=== PATIENT | female | born 1955 | race Caucasian/White ===

== ENCOUNTER → 2024-01-12 13:14 | Outpatient (REF) | payer MEDICARE, OTHER, SELFPAY | LOC: WDC 13:14 | PROVIDERS: ATTENDING PHYSICIAN Nurse Practitioner Women's Health; FAMILY PHYSICIAN Internal Medicine | DX: Z12.31 Encounter for screening mammogram for malignant neoplasm of breast (principal) | CPT/HCPCS: 77063; 77067 ==

== ENCOUNTER → 2024-02-01 09:24 | Outpatient (REF) | payer MEDICARE, OTHER, SELFPAY ==
[2024-02-01 13:10] LABS: ALT (SGPT) 23 U/L (0-35); AST (SGOT) 36 U/L (14-36); Albumin 4.2 g/dl (3.5-5.0); Alkaline Phosphatase 67 U/L (38-126); Blood Urea Nitrogen 15 mg/dl (7-17); Calcium 9.5 mg/dl (8.4-10.2); Carbon Dioxide 29 mmol/L (22-30); Chloride 104 mmol/L (98-107); Glucose 94 mg/dl (70-99); Potassium 4.4 mmol/L (3.5-5.1); Sodium 136 mmol/L (135-145); Total Bilirubin 0.8 mg/dl (0.2-1.3); Total Protein 6.8 g/dl (6.3-8.2); eGFR > 60.00
== END ==
LOC: HWLAB 09:24
PROVIDERS: ATTENDING PHYSICIAN Internal Medicine Endocrinology, Diabetes & Metabolism; FAMILY PHYSICIAN Internal Medicine
DX: M81.0 Age-related osteoporosis without current pathological fracture (principal)
CPT/HCPCS: 36415; 80053

== ENCOUNTER → 2024-02-04 11:10 | Outpatient (REF) | payer MEDICARE, OTHER, SELFPAY | LOC: RAD 11:10 | PROVIDERS: ATTENDING PHYSICIAN Internal Medicine Endocrinology, Diabetes & Metabolism; FAMILY PHYSICIAN Internal Medicine | DX: M81.0 Age-related osteoporosis without current pathological fracture (principal) | CPT/HCPCS: 77080 ==

== ENCOUNTER → 2024-04-19 09:33 | Outpatient (REF) | payer MEDICARE, OTHER, SELFPAY ==
[2024-04-19 12:14] LABS: % Basophils 0.8 % (0-2); % Immature Granulocytes 0.2 % (0-0.5); % Lymphocytes 29.4 % (20.5-51.1); % Monocytes 7.6 % (1.7-9.3); Absolute Basophils 0.1 10^3/uL (0-0.2); Absolute Eosinophils 0.1 10^3/uL (0-0.7); Absolute Lymphocytes 1.8 10^3/uL (1.2-3.4); Absolute Monocytes 0.5 10^3/uL (0.1-0.6); Absolute Neutrophils 3.6 10^3/uL (1.4-6.5); Hematocrit 43.2 % (37.0-47.0); Hemoglobin 14.5 g/dL (12.0-16.0); Mean Corp Hgb Conc. 33.6 g/dL (33.0-37.0); Mean Corpuscular Hgb 30.3 pg (27.0-31.0); Mean Corpuscular Volume 90.2 fL (81.0-99.0); Mean Platelet Volume 9.8 fL (7.4-10.4); Nucleated Red Blood Cells % 0 %; Platelet Count 246 10^3/uL (130-400); Red Blood Cell Count 4.79 10^6/uL (4.20-5.40); Red Cell Dist. Width 12.5 % (11.5-14.5); White Blood Cell Count 6.1 10^3/uL (4.8-10.8)
[2024-04-19 12:29] LABS: ALT (SGPT) 21 U/L (0-35); AST (SGOT) 37 U/L (14-36); Albumin 4.4 g/dl (3.5-5.0); Alkaline Phosphatase 66 U/L (38-126); Blood Urea Nitrogen 16 mg/dl (7-17); Calcium 9.7 mg/dl (8.4-10.2); Carbon Dioxide 31 mmol/L (22-30); Chloride 103 mmol/L (98-107); Glucose 95 mg/dl (70-99); Potassium 4.6 mmol/L (3.5-5.1); Sodium 138 mmol/L (135-145); Total Bilirubin 0.7 mg/dl (0.2-1.3); Total Protein 7.1 g/dl (6.3-8.2); eGFR > 60.00
[2024-04-19 12:56] LABS: TSH Reflex To Free T4 0.69 uIU/ml (0.47-4.68)
[2024-04-19 13:32] LABS: Folate > 20.0 ng/ml (2.76-20); Vitamin B12 622 pg/ml (239-931)
[2024-04-19 16:09] LABS: tTG IgA Antibody 5.4 EU/ml (0-19); tTG IgG Antibody 11.8 EU/ml (0-19)
[2024-04-20 00:21] LABS: IgA 197 mg/dl (70-400)
[2024-04-21 05:20] LABS: Vitamin D 1,25 Dihydroxy 69.1 pg/mL (19.9-79.3)
[2024-04-21 21:47] LABS: Endomysial IgA Antibody Titer <1:10 (<1:10)
== END ==
LOC: HWLAB 09:33
PROVIDERS: ATTENDING PHYSICIAN Internal Medicine Gastroenterology; FAMILY PHYSICIAN Internal Medicine
DX: K90.0 Celiac disease (principal); R19.7 Diarrhea, unspecified
CPT/HCPCS: 36415; 80053; 82607; 82652; 82746; 82784; 83516; 84443; 84446; 84590; 85025; 86231

== ENCOUNTER → 2024-06-06 07:36 | Outpatient (REF) | payer MEDICARE, OTHER, SELFPAY ==
[2024-06-06 10:08] LABS: Total Cholesterol 227 mg/dl (50-199); Triglyceride 55 mg/dl (10-149); Very Low Density Lipoprotein 11 mg/dl (0-30)
[2024-06-06 10:19] LABS: HDL Cholesterol 121 mg/dl; LDL Cholesterol, Calculated 95 mg/dl
== END ==
LOC: HWRAD 07:36
PROVIDERS: ATTENDING PHYSICIAN Internal Medicine Gastroenterology; FAMILY PHYSICIAN Internal Medicine; REFERRING PHYSICIAN Internal Medicine Cardiovascular Disease
DX: R74.01 Elevation of levels of liver transaminase levels (principal); Z82.49 Family history of ischemic heart disease and other diseases of the circulatory system; Z01.89 Encounter for other specified special examinations
CPT/HCPCS: 36415; 76700; 80061

== ENCOUNTER → 2024-09-26 13:04 | Outpatient (REF) | payer MEDICARE, OTHER, SELFPAY | LOC: RSP 13:04 | PROVIDERS: ATTENDING PHYSICIAN Internal Medicine Critical Care Medicine; FAMILY PHYSICIAN Internal Medicine | DX: D86.9 Sarcoidosis, unspecified (principal) | CPT/HCPCS: 94727; 94729; 71046; 88738; 94010 ==

== ENCOUNTER → 2024-09-28 08:41 | Outpatient (REF) | payer MEDICARE, OTHER, SELFPAY ==
[2024-09-28 12:38] LABS: % Basophils 0.8 % (0-2); % Eosinophils 2.4 % (0-6); % Immature Granulocytes 0.2 % (0-0.5); % Lymphocytes 28.7 % (20.5-51.1); % Monocytes 8.4 % (1.7-9.3); % Neutrophils 59.5 % (42.2-75.2); Absolute Eosinophils 0.1 10^3/uL (0-0.7); Absolute Lymphocytes 1.4 10^3/uL (1.2-3.4); Absolute Monocytes 0.4 10^3/uL (0.1-0.6); Hematocrit 42.4 % (37.0-47.0); Hemoglobin 13.6 g/dL (12.0-16.0); Mean Corp Hgb Conc. 32.1 g/dL (33.0-37.0); Mean Corpuscular Hgb 30.1 pg (27.0-31.0); Mean Corpuscular Volume 93.8 fL (81.0-99.0); Mean Platelet Volume 10.2 fL (7.4-10.4); Nucleated Red Blood Cells % 0 %; Platelet Count 220 10^3/uL (130-400); Red Blood Cell Count 4.52 10^6/uL (4.20-5.40)
[2024-09-28 12:43] LABS: ALT (SGPT) 27 U/L (0-35); AST (SGOT) 38 U/L (14-36); Albumin 4.3 g/dl (3.5-5.0); Alkaline Phosphatase 61 U/L (38-126); Blood Urea Nitrogen 18 mg/dl (7-17); Calcium 9.4 mg/dl (8.4-10.2); Carbon Dioxide 32 mmol/L (22-30); Chloride 101 mmol/L (98-107); Glucose 93 mg/dl (70-99); Potassium 4.6 mmol/L (3.5-5.1); Sodium 138 mmol/L (135-145); Total Bilirubin 0.6 mg/dl (0.2-1.3); Total Cholesterol 244 mg/dl (50-199); Triglyceride 45 mg/dl (10-149); Very Low Density Lipoprotein 9 mg/dl (0-30); eGFR > 60.00
[2024-09-28 12:53] LABS: IgA 195 mg/dl (70-400)
[2024-09-28 12:57] LABS: HDL Cholesterol 140 mg/dl; LDL Cholesterol, Calculated 95 mg/dl
[2024-09-28 13:00] LABS: Vitamin D, 25-OH*** 57.8 ng/mL (30-80)
[2024-09-29 23:28] LABS: Angiotensin-1-converting Enzym 80 U/L (16-85)
[2024-09-30 06:33] LABS: Endomysial IgA Antibody Titer <1:10 (<1:10)
== END ==
LOC: HWLAB 08:41
PROVIDERS: ATTENDING PHYSICIAN Internal Medicine
DX: D86.9 Sarcoidosis, unspecified (principal); K90.0 Celiac disease; E78.01 Familial hypercholesterolemia; E55.9 Vitamin D deficiency, unspecified
CPT/HCPCS: 36415; 80053; 80061; 82164; 82306; 82784; 83516; 85025; 86231

== ENCOUNTER 2024-09-29 15:46 | Emergency (ER) | payer MEDICARE, OTHER, SELFPAY ==
[2024-09-29 15:52] VITALS: BP 175/73
[2024-09-29 16:06] LABS: % Basophils 0.5 % (0-2); % Eosinophils 0.9 % (0-6); % Immature Granulocytes 0.2 % (0-0.5); % Lymphocytes 29.7 % (20.5-51.1); % Neutrophils 59.7 % (42.2-75.2); Absolute Eosinophils 0.1 10^3/uL (0-0.7); Absolute Lymphocytes 2.4 10^3/uL (1.2-3.4); Absolute Monocytes 0.7 10^3/uL (0.1-0.6); Absolute Neutrophils 4.9 10^3/uL (1.4-6.5); Hematocrit 40.4 % (37.0-47.0); Hemoglobin 13.6 g/dL (12.0-16.0); Mean Corp Hgb Conc. 33.7 g/dL (33.0-37.0); Mean Corpuscular Hgb 30.7 pg (27.0-31.0); Mean Corpuscular Volume 91.2 fL (81.0-99.0); Mean Platelet Volume 9.5 fL (7.4-10.4); Nucleated Red Blood Cells % 0 %; Platelet Count 212 10^3/uL (130-400); Red Blood Cell Count 4.43 10^6/uL (4.20-5.40); Red Cell Dist. Width 11.9 % (11.5-14.5); White Blood Cell Count 8.1 10^3/uL (4.8-10.8)
[2024-09-29 16:24] LABS: ALT (SGPT) 27 U/L (0-35); AST (SGOT) 40 U/L (14-36); Albumin 4.7 g/dl (3.5-5.0); Alkaline Phosphatase 68 U/L (38-126); Blood Urea Nitrogen 19 mg/dl (7-17); Calcium 9.6 mg/dl (8.4-10.2); Carbon Dioxide 31 mmol/L (22-30); Chloride 98 mmol/L (98-107); Glucose 103 mg/dl (70-99); Potassium 4.3 mmol/L (3.5-5.1); Sodium 134 mmol/L (135-145); Total Bilirubin 0.6 mg/dl (0.2-1.3); Total Protein 7.4 g/dl (6.3-8.2); eGFR > 60.00
[2024-09-29 16:35] LABS: Troponin I < 0.012 ng/ml
--- NOTE | 2024-09-29 18:09 | ED.GENMED ---
History of Present Illness
General
Chief Complaint: Chest Problem
Source: patient
Exam Limitations: none
Time Seen by Provider: 09/29/24 17:37
History of Present Illness
History of Present Illness:
69-year-old female with history of GERD and on citalopram presents with intermittent palpitations over the last several weeks and the onset of a chest pressure today. She also notes headache and lightheadedness. She states her blood pressure has
been elevated today. She denies any unilateral numbness or weakness. She denies any vision change. She does note 2 weeks ago she had a 3-hour one-way drive to [facility] and back. No leg swelling or calf pain.
Past History
Past History
ED Past Medical History: Other (celiac ds, sarcoidosis) and Other (Migraine headaches)
Social History
Tobacco: Non-smoker
Alcohol: None
Drug: None
Personal:
Living: with family
Employment: Employed
Phy Exam
Physical Exam
Physical Exam:
General: Well-appearing female no acute respiratory distress
HEENT: Normocephalic atraumatic pupils equal round reactive to light
Heart: Regular rate and rhythm
Lungs: Clear no wheeze
Abdomen soft nontender nondistended no guarding rebound
Extremities: No cyanosis or edema
Neurologic alert and oriented no facial asymmetry or slurred speech
Course
Orders/Labs/Results
Orders:
Orders
09/29/24 15:47
ECG [Electrocardiogram (*1)] Urgent
Reason for Study: Chest Pain
EKG- Treatment ONCE
09/29/24 15:58
Complete Blood Count/With Diff Urgent
Comprehensive Metabolic Panel Urgent
Troponin I Urgent
09/29/24 18:03
CT Head W/o Iv Contrast Urgent
Comment:
Reason For Exam: headache, dizzy
09/29/24 18:34
D-Dimer Urgent
TSH Reflex To Free T4 Urgent
Troponin I Urgent
09/29/24 20:05
COVID-19 Antigen Urgent
Source: Nasal Swab
Influenza A+B Rapid Molecular Urgent
GEORGE Source: Nasal Swab
Specimen Description:
Abnormal Lab Results
09/29/24
15:58
Absolute Monos (auto) 0.7 H 10^3/uL
(0.1-0.6)
Sodium 134 L mmol/L
(135-145)
Carbon Dioxide 31 H mmol/L
(22-30)
BUN 19 H mg/dl
(7-17)
Glucose 103 H mg/dl
(70-99)
AST 40 H U/L
(14-36)
09/29/24 15:58
09/29/24 15:58
Vital Signs
Initial and Last Documented VS:
Initial Vital Signs
Temp Pulse Resp BP Pulse Ox
97.5 F 58 16 175/73 98
09/29/24 15:52 09/29/24 15:52 09/29/24 15:52 09/29/24 15:52 09/29/24 15:52
Last Documented Vital Signs
Temp Pulse Resp BP Pulse Ox
97.5 F 58 12 163/78 100
09/29/24 15:52 09/29/24 18:39 09/29/24 18:39 09/29/24 18:39 09/29/24 18:39
MDM/Problems Addressed
Differential Diagnosis Includes:
Patient with chest pressure headache lightheadedness elevated blood pressure readings and fatigue. Consider palpitations versus PVC versus electrolyte abnormality will check for signs of ACS with troponin. She did have an x-ray of her chest
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 Given the recent travel will check D-dimer.
*Critical Care Note
Total Time (30-74mins, 75-104mins- exclusive of procedures): Not Applicable
Update Note
Update Note:
Reviewed labs. Reevaluated patient multiple times. Initial and repeat troponin both undetectable. D-dimer negative chest x-ray clear COVID and flu test were added which were negative. Patient has remained stable. Blood pressure improved. No
sign of ACS currently but will discharge with chest pain follow up. Return precautions given.
ED Attending Note
-
Portions of this chart may have been created with voice recognition software.� Occasional wrong word or��sound alike� substitutions may have occurred due to the inherent limitations of voice recognition software.
Discharge Plan
Departure
Patient Disposition: Home (Routine Discharge)
Date of Disposition: 09/29/24
Time of Disposition: 20:43
Patient with high blood pressure during this ER visit?: No
Discharge Problem:
Chest pain
Instructions: Chest Pain CBC Follow Up
Prescriptions:
No Action
citalopram 20 MG tablet
20 mg DAILY
protriptyline [Vivactil] 5 MG tablet
5 mg TID
cholecalciferol (vitamin D3) 1,000 UNIT capsule
1,000 unit PO DAILY
docosahexaenoic acid-epa 1 CAP capsule
1 cap BID
magnesium oxide 400 MG capsule
400 mg PO DAILY
Citracal+Vitamin D
630 mg BID
meclizine 25 MG tablet
25 mg PO [id number] PRN (Reason: nausea or vertigo) Qty: 11 0RF
Referrals:
Jp Ram MD [Family Provider] -
Activity Restrictions/Additional Instructions:
Please return here for worsening symptoms otherwise follow-up with your cardiology team
Interventions
Interventions:
*Risk Screen - Suicide Last Done: 09/29/24 15:54
*General Assessment Last Done: 09/29/24 18:39
*Neglect/Abuse Screening Last Done: 09/29/24 15:54
ED- Fall Risk Assessment Last Done: 09/29/24 18:39
*ED COVID-19 Vaccine History Last Done: 09/29/24 18:39
ED- Cardiac Assessment Last Done: 09/29/24 18:39
ED- Pulmonary Assessment Last Done: 09/29/24 18:39
Discharge Date and Time
Print Language: UKRAINIAN
[2024-09-29 18:39] VITALS: BP 163/78
--- NOTE | 2024-09-29 18:43 | EDRN ---
Pt states she has lightheadedness, a headache, heavyness in substernal area of chest and HTN.
[2024-09-29 19:02] LABS: D-Dimer 0.28 ug/mlFEU (0.00-0.50)
[2024-09-29 19:06] LABS: Troponin I < 0.012 ng/ml
[2024-09-29 19:37] LABS: TSH Reflex To Free T4 1.01 uIU/ml (0.47-4.68)
[2024-09-29 20:25] LABS: COVID-19 Antigen Negative (Negative)
== END 2024-09-29 20:59 | disposition home or self-care (01) ==
LOC: EMR 15:46
PROVIDERS: Emergency Medicine; Physician Assistant; EMERGENCY PHYSICIAN Emergency Medicine; FAMILY PHYSICIAN Internal Medicine
DX: R07.89 Other chest pain (principal); K21.9 Gastro-esophageal reflux disease without esophagitis; Z11.52 Encounter for screening for COVID-19
CPT/HCPCS: 99285; 70450; 80053; 84443; 84484; 85025; 85379; 87502; 87811; 93005

== ENCOUNTER → 2024-10-23 10:19 | Outpatient (REF) | payer MEDICARE, OTHER, SELFPAY | LOC: RCS 10:19 | PROVIDERS: ATTENDING PHYSICIAN Internal Medicine Cardiovascular Disease; FAMILY PHYSICIAN Internal Medicine | DX: R00.2 Palpitations (principal) | CPT/HCPCS: 93225; 93226 ==

== ENCOUNTER → 2024-11-01 12:52 | Outpatient (REF) | payer MEDICARE, OTHER, SELFPAY | LOC: HWRCS 12:52 | PROVIDERS: ATTENDING PHYSICIAN Internal Medicine Cardiovascular Disease; FAMILY PHYSICIAN Internal Medicine | DX: R00.2 Palpitations (principal) | CPT/HCPCS: 93306 ==

== ENCOUNTER → 2025-01-12 13:00 | Outpatient (REF) | payer MEDICARE, OTHER, SELFPAY | LOC: WDC 13:00 | PROVIDERS: FAMILY PHYSICIAN Internal Medicine | DX: Z12.31 Encounter for screening mammogram for malignant neoplasm of breast (principal) | CPT/HCPCS: 77063; 77067 ==

== ENCOUNTER → 2025-01-15 09:41 | Outpatient (REF) | payer MEDICARE, OTHER, SELFPAY ==
[2025-01-15 12:24] LABS: ALT (SGPT) 25 U/L (0-35); AST (SGOT) 36 U/L (14-36); Albumin 4.3 g/dl (3.5-5.0); Alkaline Phosphatase 70 U/L (38-126); Blood Urea Nitrogen 22 mg/dl (7-17); Calcium 9.7 mg/dl (8.4-10.2); Carbon Dioxide 32 mmol/L (22-30); Chloride 104 mmol/L (98-107); Glucose 91 mg/dl (70-99); Potassium 4.6 mmol/L (3.5-5.1); Sodium 141 mmol/L (135-145); Total Bilirubin 0.9 mg/dl (0.2-1.3); Total Protein 6.9 g/dl (6.3-8.2); eGFR > 60.00
[2025-01-15 12:40] LABS: Vitamin D, 25-OH*** 91.8 ng/mL (30-80)
== END ==
LOC: HWLAB 09:41
PROVIDERS: ATTENDING PHYSICIAN Internal Medicine Endocrinology, Diabetes & Metabolism; FAMILY PHYSICIAN Internal Medicine
DX: M81.0 Age-related osteoporosis without current pathological fracture (principal); E55.9 Vitamin D deficiency, unspecified
CPT/HCPCS: 36415; 80053; 82306

== ENCOUNTER → 2025-02-08 12:55 | Outpatient (REF) | payer MEDICARE, OTHER, SELFPAY | LOC: WDC 12:55 | PROVIDERS: FAMILY PHYSICIAN Internal Medicine | DX: R92.2 Inconclusive mammogram (principal); R92.30 Dense breasts, unspecified | CPT/HCPCS: 76641 ==

== ENCOUNTER → 2025-02-21 09:39 | Outpatient (REF) | payer MEDICARE, OTHER, SELFPAY ==
[2025-02-21 12:37] LABS: Iron 83 ug/dl (37-170)
[2025-02-21 12:46] LABS: Percent Saturation 30 % (20-50); Total Iron Binding Capacity 275 ug/dl (265-497)
[2025-02-21 12:59] LABS: TSH Reflex To Free T4 0.84 uIU/ml (0.47-4.68)
[2025-02-21 13:35] LABS: Folate > 20.0 ng/ml (2.76-20); Vitamin B12 602 pg/ml (239-931)
[2025-02-21 23:27] LABS: IgA 200 mg/dl (70-400)
[2025-02-22 21:22] LABS: Vitamin D 1,25 Dihydroxy 45.6 pg/mL (19.9-79.3)
[2025-02-22 23:07] LABS: Ceruloplasmin 28 mg/dL (16-45)
[2025-02-23 01:53] LABS: F-Actin Antibody IgG 15 Units (0-19); Mitochondrial M2 Ab, IgG 6.1 Units (0.0-24.9)
[2025-02-23 14:04] LABS: ANA, IgG Reflex to HEp-2 None Detected (None Detected)
[2025-02-23 14:05] LABS: tTG IgG Antibody 7.9 EU/ml (0-19)
== END ==
LOC: HWLAB 09:39
PROVIDERS: ATTENDING PHYSICIAN Internal Medicine Gastroenterology; FAMILY PHYSICIAN Internal Medicine
DX: R74.01 Elevation of levels of liver transaminase levels (principal); K90.0 Celiac disease; R19.7 Diarrhea, unspecified
CPT/HCPCS: 36415; 82103; 82104; 82390; 82607; 82652; 82728; 82746; 82784; 83516; 83540; 83550; 84443; 84446; 84590; 86015; 86038; 86231; 86381

== ENCOUNTER → 2025-05-16 08:54 | Outpatient (REF) | payer MEDICARE, OTHER, SELFPAY | LOC: HWRAD 08:54 | PROVIDERS: ATTENDING PHYSICIAN Internal Medicine Gastroenterology; FAMILY PHYSICIAN Internal Medicine | DX: K76.0 Fatty (change of) liver, not elsewhere classified (principal) | CPT/HCPCS: 76700 ==

== ENCOUNTER → 2025-08-15 08:50 | Outpatient (REF) | payer MEDICARE, OTHER, SELFPAY ==
[2025-08-15 15:28] LABS: Vitamin D, 25-OH*** 50.1 ng/mL (30-80)
[2025-08-15 16:32] LABS: ALT (SGPT) 23 U/L (0-35); AST (SGOT) 34 U/L (14-36); Albumin 4.2 g/dl (3.5-5.0); Alkaline Phosphatase 66 U/L (38-126); Blood Urea Nitrogen 15 mg/dl (7-17); Calcium 9.4 mg/dl (8.4-10.2); Carbon Dioxide 29 mmol/L (22-30); Chloride 104 mmol/L (98-107); Glucose 96 mg/dl (70-99); Potassium 4.7 mmol/L (3.5-5.1); Sodium 136 mmol/L (135-145); Total Protein 7.4 g/dl (6.3-8.2); eGFR > 60.00
== END ==
LOC: HWLAB 08:50
PROVIDERS: ATTENDING PHYSICIAN Internal Medicine Endocrinology, Diabetes & Metabolism; FAMILY PHYSICIAN Internal Medicine
DX: M81.0 Age-related osteoporosis without current pathological fracture (principal); E55.9 Vitamin D deficiency, unspecified
CPT/HCPCS: 36415; 80053; 82306

== ENCOUNTER → 2025-10-10 09:29 | Outpatient (REF) | payer MEDICARE, OTHER, SELFPAY ==
[2025-10-10 12:01] LABS: Hematocrit 41.3 % (37.0-47.0); Hemoglobin 13.4 g/dL (12.0-16.0); Mean Corp Hgb Conc. 32.4 g/dL (33.0-37.0); Mean Corpuscular Volume 91.0 fL (81.0-99.0); Nucleated Red Blood Cells % 0 %; Platelet Count 223 10^3/uL (130-400); Red Cell Dist. Width 12.5 % (11.5-14.5)
[2025-10-10 12:27] LABS: ALT (SGPT) 22 U/L (0-35); AST (SGOT) 34 U/L (14-36); Albumin 4.3 g/dl (3.5-5.0); Alkaline Phosphatase 66 U/L (38-126); Blood Urea Nitrogen 13 mg/dl (7-17); Calcium 9.2 mg/dl (8.4-10.2); Carbon Dioxide 27 mmol/L (22-30); Chloride 104 mmol/L (98-107); Glucose 92 mg/dl (70-99); Potassium 4.6 mmol/L (3.5-5.1); Sodium 137 mmol/L (135-145); Total Protein 6.9 g/dl (6.3-8.2); eGFR > 60.00
[2025-10-10 12:29] LABS: Vitamin D, 25-OH*** 48.9 ng/mL (30-80)
[2025-10-10 12:48] LABS: HDL Cholesterol 123 mg/dl; LDL Cholesterol, Calculated 106 mg/dl; Very Low Density Lipoprotein 9 mg/dl (0-30)
== END ==
LOC: HWLAB 09:29
PROVIDERS: ATTENDING PHYSICIAN Student in an Organized Health Care Education/Training Program; FAMILY PHYSICIAN Internal Medicine
DX: R06.00 Dyspnea, unspecified (principal); E78.00 Pure hypercholesterolemia, unspecified; E55.9 Vitamin D deficiency, unspecified
CPT/HCPCS: 36415; 71046; 80053; 80061; 82306; 85025